=== PATIENT | female | born 1985 | race African-American/Black ===

== ENCOUNTER 2018-08-27 11:56 | Emergency (ER) | payer MEDICAID ==
[~2018-08-27] VITALS: Ht 152.4 cm; Wt 54.0 kg
[2018-08-27 12:09] VITALS: Ht 152.4 cm; Wt 54.0 kg
[2018-08-27 12:47] LABS: UA SPECIFIC GRAVITY 1.015 (1.005-1.035)
[2018-08-27 12:48] LABS: microscopic required? YES; urine erythrocyte NEGATIVE (NEGATIVE)
[2018-08-27 13:56] VITALS: BP 99/54
== END 2018-08-27 14:16 | disposition home or self-care (01) ==
LOC: ED 11:56
PROVIDERS: Emergency Medicine
DX: O26.891 Other specified pregnancy related conditions, first trimester (principal); R10.30 Lower abdominal pain, unspecified; J45.909 Unspecified asthma, uncomplicated; Z3A.13 13 weeks gestation of pregnancy; Z86.69 Personal history of other diseases of the nervous system and sense organs; Z98.890 Other specified postprocedural states
CPT/HCPCS: 36415

== ENCOUNTER 2019-08-11 14:30 | Inpatient (IN) | payer MEDICAID ==
[~2019-08-11] VITALS: Ht 152.4 cm; Wt 52.7 kg
[2019-08-11 14:44] VITALS: Ht 152.4 cm; Wt 52.7 kg
[2019-08-11 15:03] LABS: BASOPHIL % 0.8 % (0-2); PLATELET COUNT 218 x10^3mcL (130-400); RED CELL DISTRIBUTION WIDTH 14.1 % (11.5-14.5)
[2019-08-11 15:14] LABS: CALCIUM 8.6 mg/dL (8.5-10.1); CARBON DIOXIDE 28.6 mmol/L (21-32); CHLORIDE SERUM 101 mmol/L (98-107); CREATININE SERUM 0.8 mg/dL (0.6-1.0); GFR1 > 60 mL/min; GLUCOSE SERUM 92 mg/dL (74-106); POTASSIUM SERUM 3.8 mmol/L (3.5-5.1); SODIUM SERUM 138 mmol/L (136-145)
[2019-08-11 15:19] LABS: ALBUMIN 3.1 g/dL (3.4-5.0); ALKALINE PHOSPHATASE 44 U/L (46-116); ALT/SGPT 22 U/L (14-59); AST/SGOT 15 U/L (15-37); BILIRUBIN TOTAL 0.3 mg/dL (0.20-1.00); LIPASE 76 IU/L (73-393); TOTAL PROTEIN, SERUM 6.3 g/dL (6.4-8.2)
[2019-08-11 16:13] LABS: UA SPECIFIC GRAVITY >=1.030 (1.005-1.035); microscopic required? YES; urine erythrocyte 2+ (NEGATIVE)
[2019-08-11 16:53] LABS: BASOPHIL % 0.4 % (0-2); PLATELET COUNT 168 x10^3mcL (130-400); RED CELL DISTRIBUTION WIDTH 14.1 % (11.5-14.5)
[2019-08-11 17:07] LABS: rbc morphology (normal/abnorm) ABNORMAL (NORMAL)
[2019-08-11 18:10] LABS: CHOLESTEROL/HDL RATIO 2.6; MAGNESIUM 1.8 mg/dL (1.8-2.4); PHOSPHOROUS 2.8 mg/dL (2.5-4.9)
[2019-08-11 18:15] LABS: AMPHETAMINE QUAL UR POSITIVE (See below)
[2019-08-11 18:18] LABS: FREE T4 1.04 ng/dL (0.76-1.46); FREE THYROXINE INDEX 2.7 ug/dL (1.4-4.5); T3 TOTAL 1.19 ng/mL; T4(THYROXINE) 7.4 ug/dL (4.7-13.3)
[2019-08-11 18:42] VITALS: BP 97/46
[2019-08-11 19:06] LABS: IRON 54 ug/dL (50-170)
[2019-08-11 19:08] LABS: TOTAL IRON BINDING CAPACITY 233 ug/dL (250-450)
[2019-08-11 20:34] VITALS: BP 97/43
[2019-08-11 22:00] VITALS: BP 89/35
[2019-08-11 22:50] VITALS: BP 95/48
[2019-08-12 05:40] VITALS: BP 111/90
[2019-08-12 06:27] LABS: BASOPHIL % 0.3 % (0-2); PLATELET COUNT 155 x10^3mcL (130-400); RED CELL DISTRIBUTION WIDTH 14.2 % (11.5-14.5)
[2019-08-12 06:38] LABS: CALCIUM 7.7 mg/dL (8.5-10.1); CARBON DIOXIDE 24.9 mmol/L (21-32); CHLORIDE SERUM 108 mmol/L (98-107); CREATININE SERUM 0.7 mg/dL (0.6-1.0); GFR1 > 60 mL/min; GLUCOSE SERUM 79 mg/dL (74-106); MAGNESIUM 1.8 mg/dL (1.8-2.4); PHOSPHOROUS 3.2 mg/dL (2.5-4.9); POTASSIUM SERUM 3.6 mmol/L (3.5-5.1); SODIUM SERUM 140 mmol/L (136-145)
[2019-08-12 08:30] VITALS: BP 87/45
[2019-08-12] MEDS ORDERED: FER300 PO (11:05)
[2019-08-12 12:25] VITALS: BP 90/51
[2019-08-12 12:26] VITALS: BP 90/51
[2019-08-12 12:37] VITALS: BP 112/56
== END 2019-08-12 12:43 | disposition home or self-care (01) | DRG 564 ==
LOC: ED 14:30 → DU 17:38
PROVIDERS: Emergency Medicine; ADMIT Family Medicine
PROC: 30233N1 Transfusion of Nonautologous Red Blood Cells into Peripheral Vein, Percutaneous Approach (ICD-10-PCS; principal; 2019-08-11)
DX: O03.9 Complete or unspecified spontaneous abortion without complication (principal); E44.1 Mild protein-calorie malnutrition; O03.6 Delayed or excessive hemorrhage following complete or unspecified spontaneous abortion; G43.909 Migraine, unspecified, not intractable, without status migrainosus; F12.10 Cannabis abuse, uncomplicated; F15.10 Other stimulant abuse, uncomplicated; Z87.442 Personal history of urinary calculi; Z68.22 Body mass index [BMI] 22.0-22.9, adult
CPT/HCPCS: 84439; G0378; J2270; J2405; J7030; J7050; P9016; Q0092; Q0163

== ENCOUNTER 2019-08-12 15:19 | Emergency (ER) | payer MEDICAID ==
[~2019-08-12] VITALS: Ht 162.6 cm; Wt 68.0 kg
[~2019-08-12 15:19] MED LIST: FER300 PO
[2019-08-12 15:29] VITALS: Ht 162.6 cm; Wt 68.0 kg
[2019-08-12 15:54] LABS: BASOPHIL % 0.2 % (0-2); PLATELET COUNT 178 x10^3mcL (130-400)
[2019-08-12 15:58] LABS: ALKALINE PHOSPHATASE 35 U/L (46-116); ALT/SGPT 24 U/L (14-59); AST/SGOT 22 U/L (15-37); BILIRUBIN TOTAL 0.8 mg/dL (0.20-1.00); CALCIUM 8.4 mg/dL (8.5-10.1); CARBON DIOXIDE 24.5 mmol/L (21-32); CHLORIDE SERUM 105 mmol/L (98-107); CREATININE SERUM 0.9 mg/dL (0.6-1.0); GFR1 > 60 mL/min; GLUCOSE SERUM 92 mg/dL (74-106); LIPASE 43 IU/L (73-393); POTASSIUM SERUM 3.6 mmol/L (3.5-5.1); SODIUM SERUM 139 mmol/L (136-145)
[2019-08-12 16:10] LABS: TOTAL PROTEIN, SERUM 5.8 g/dL (6.4-8.2)
[2019-08-12 16:39] LABS: UA SPECIFIC GRAVITY 1.025 (1.005-1.035); microscopic required? YES; urine erythrocyte 3+ (NEGATIVE)
[2019-08-12 16:53] LABS: AMPHETAMINE QUAL UR NONE DETECTED (See below)
[2019-08-12 19:42] VITALS: BP 109/56
== END 2019-08-12 19:42 | disposition left against medical advice (07) ==
LOC: ED 15:19
PROVIDERS: Emergency Medicine; Family Medicine
DX: R10.31 Right lower quadrant pain (principal); F12.90 Cannabis use, unspecified, uncomplicated; N80.9 Endometriosis, unspecified; G43.909 Migraine, unspecified, not intractable, without status migrainosus; Z87.442 Personal history of urinary calculi
CPT/HCPCS: J2270; J2405; J7030; Q0092